=== PATIENT | male | born 1965 | race Hispanic/Latino ===

== ENCOUNTER 2017-01-02 11:11 | Emergency (ER) | payer SELFPAY ==
--- NOTE | 2017-01-02 14:17 | Emergency Department Report ---
ED Rash HPI - HPI Chief Complaint: Skin Rash Stated Complaint: RASH ALL OVER Time Seen by Provider: 01/02/17 14:01 Duration: 2 Days Location: Upper Extremities Suspected Cause: Plant Rash Symptoms: Yes Itching, No Facial Swelling, No Tongue/Oral Swelling, No Breathing Difficulties, No Choking Sensation, No Wheezing/Dyspnea, No Peeling, No Blistering, No Fever, No Lightheaded, No Malaise, No Myalgias Severity: moderate Other History: 51 y/o M presents with itching, redness, swelling, and diffuse rash, some linear and others in patches of his upper extremeties. Pt was out in the yard on Saturday pulling plants and then this started. Pt denies any resp distress, SOB, chest pain, chest tightness, choking sensation, or diff breathing at this time. Pt has been trying calamine lotion with no relief of the symptoms. Pt denies any numbness or tingling. No fever or chills. No known past medical hx. ED Review of Systems ROS: Stated complaint: RASH ALL OVER Other details as noted in HPI Constitutional: denies: chills, fever Eyes: other (no reported orbital swelling) ENT: other (no reported facial swelling, airway compromise, or lip swelling). denies: ear pain, throat pain Respiratory: denies: cough, shortness of breath, wheezing Cardiovascular: denies: chest pain, palpitations Skin: rash, pruritus, other Neurological: denies: headache, weakness, paresthesias Psychiatric: denies: anxiety, depression ED Past Medical Hx - Past Medical History Previous Medical History?: No - Social History Smoking Status: Current Every Day Smoker - Medications Home Medications: Home Medications Medication Instructions Recorded Confirmed Last Taken Type Hydroxyzine HCl 25 mg PO TID PRN #15 tablet 01/02/17 Unknown Rx Triamcinolone 0.1% [Kenalog 0.1% 1 applic TP TID PRN #1 tube 01/02/17 Unknown Rx CREAM] predniSONE [Deltasone] 20 mg PO QDAY #5 tab 01/02/17 Unknown Rx Rash Exam - Exam General: Vital signs noted. No distress. Alert and acting appropriately. HEENT: No Periorbital Edema, No Conjuctival Injection, No Chemosis, No Perioral Edema, No Tongue Edema, No Uvular Edema, No Compromised Airway (no facial swelling, airway is patent, no lips swelling noted), No Drooling Lungs: Yes Good Air Exchange, No Wheezes, No Ronchi, No Stridor, No Cough, No Labored Respirations, No Retractions, No Use of Accessory Muscles Heart: Yes Regular, No Murmur Front/Back of Body, Lg (Color): 1 - rash noted here 2 - rash noted here 3 - rash noted here 4 - rash noted here Skin: Yes Excoriations (there was some linear and some diffuse patches of what appears to be poision sarah, mild oozing noted, some redness), Yes Weeping, Yes Erythema, No Urticarial Rash, No Maculopapular Rash, No Morbilliform rash, No Bulla(e), No Tenderness, No Edema, No Encrustations Other: Positive: Abdomen Normal, Neurologic Normal, Musculoskeletal Normal ED Course Vital Signs 01/02/17 11:49 Temperature 98 F Pulse Rate 77 Respiratory 16 Rate Blood Pressure 126/83 Blood Pressure 126/83 [Right] O2 Sat by Pulse 96 Oximetry ED Medical Decision Making - Medical Decision Making Pt ED stay was uneventful. Pt was given Solu-medrol 125 mg here in the ED and was discharged home on prednisone oral for the next 5 days, hydroxyzine, and triamcinolone cream for the poison sarah rash. Pt did not have any resp distress, SOB, swelling of the mouth or lips. Pt was discharged in stable condition. Pt was given referrals to a specialist if needed for continued or worsening symptoms. Critical care attestation.: If time is entered above; I have spent that time in minutes in the direct care of this critically ill patient, excluding procedure time. ED Disposition Clinical Impression: Poison sarah, Dermatitis Disposition: DC-01 TO HOME OR SELFCARE Is pt being admited?: No Does the pt Need Aspirin: No Condition: Stable Instructions: Prednisone (By mouth), Poison Sarah (ED) Additional Instructions: Please take the oral prednisone starting tomorrow as you had the steriod shot today. Please avoid all NSAIDs while taking prednisone, I would advise no smoking at this time as well. Please take the anti-itch medicine at night as it may make you drowsy. Please follow-up with PCP within 3-5 days. Dermatology referral given to you today. Please return to the ER immediately with chest pain, SOB, or worsening symptoms. Prescriptions: Hydroxyzine HCl 25 mg PO TID PRN #15 tablet PRN Reason: itching predniSONE [Deltasone] 20 mg PO QDAY #5 tab Triamcinolone 0.1% [Kenalog 0.1% CREAM] 1 applic TP TID PRN #1 tube PRN Reason: itching Referrals: PRIMARY CARE, [Primary Care Provider] - 3-5 Days MANDO MUSTAFA MD [Staff Physician] - 3-[address] [facility] [place] [Outside] - 3-5 Days [facility] [Outside] - 3-5 Days Forms: Work/School Release Form(ED) Time of Disposition: 14:30
[2017-01-02 14:55] VITALS: BP 125/72
== END 2017-01-02 14:53 | disposition home or self-care (01) ==
LOC: ED 11:11
DX: L23.7 Allergic contact dermatitis due to plants, except food (principal); F17.200 Nicotine dependence, unspecified, uncomplicated; Z88.0 Allergy status to penicillin
CPT/HCPCS: 96372; 99282; J2930

== ENCOUNTER 2017-07-06 09:23 | Emergency (ER) | payer SELFPAY ==
[2017-07-06] MEDS ORDERED: DELTASONE PO ONE (11:32)
[2017-07-06] MEDS ORDERED: ROBITUSSIN PO ONE (11:32)
--- NOTE | 2017-07-06 11:54 | Emergency Department Report ---
Minor Respiratory - HPI Chief Complaint: Upper Respiratory Infection Stated Complaint: BODY ACHES Time Seen by Provider: 07/06/17 11:29 Minor Respiratory: Yes Able to Tolerate Fluids, Yes Cough, No Rhinorrhea, No Sore Throat, No Ear Pain, No Sick Contacts, No Hemoptysis, No Chest Pain, No Shortness of Breath, No Fever Other History: This is a 52-year-old male with no problems medical history who presents to ED complaining of cough and body aches for the past month. Patient states that symptoms is really worse this past week. Patient describes cough sometimes productive and intermittent throughout the day. She also states she has generalized body aches. He denies sick contacts, patient states that he does smoke tobacco a lot and drinks alcohol. ED Review of Systems ROS: Stated complaint: BODY ACHES Other details as noted in HPI Constitutional: denies: chills, fever Eyes: denies: eye pain, eye discharge, vision change ENT: denies: ear pain, throat pain Respiratory: cough. denies: shortness of breath, wheezing Cardiovascular: denies: chest pain, palpitations Endocrine: no symptoms reported Gastrointestinal: denies: abdominal pain, nausea, vomiting, diarrhea, constipation Genitourinary: denies: urgency, dysuria Musculoskeletal: denies: back pain, joint swelling, arthralgia Skin: denies: rash, lesions Neurological: denies: headache, weakness, paresthesias Psychiatric: denies: anxiety, depression Hematological/Lymphatic: denies: easy bleeding, easy bruising ED Past Medical Hx - Past Medical History Previous Medical History?: No - Surgical History Past Surgical History?: No - Social History Smoking Status: Current Every Day Smoker Substance Use Type: Alcohol - Medications Home Medications: Home Medications Medication Instructions Recorded Confirmed Last Taken Type Hydroxyzine HCl 25 mg PO TID PRN #15 tablet 01/02/17 Unknown Rx Triamcinolone 0.1% [Kenalog 0.1% 1 applic TP TID PRN #1 tube 01/02/17 Unknown Rx CREAM] predniSONE [Deltasone] 20 mg PO QDAY #5 tab 01/02/17 Unknown Rx ALBUTEROL Inhaler [ProAir HFA 2 puff IH QID PRN #1 pump 07/06/17 Unknown Rx Inhaler] Acetaminophen with Codeine 5 ml PO TID #80 ml 07/06/17 Unknown Rx [Acetaminop-Codeine 120-12 mg/5] Benzonatate [Tessalon Perles] 100 mg PO Q8HR #40 capsule 07/06/17 Unknown Rx Minor Respiratory Exam - Exam General: Vital signs noted. No distress. Alert and acting appropriately. HEENT: Yes Moist Mucous Membranes, No Pharyngeal Erythema, No Pharyngeal Exudates, No Rhinorrhea, No Conjuctival Injection, No Frontal Tenderness, No Maxillary Tenderness Ear: Neither TM Bulge, Neither TM Erythema, Neither EAC Pain, Neither EAC Discharge Neck: Yes Supple, No Adenopathy Lungs: Yes Good Air Exchange, No Wheezes, No Ronchi, No Stridor, No Cough, No Labored Respirations, No Retractions, No Use of Accessory Muscles, No Other Abnormal Lung Sounds Heart: Yes Regular, No Murmur Abdomen: Yes Normal Bowel Sounds, No Tenderness, No Peritoneal Signs Skin: No Rash, No Edema Neurologic: Alert and oriented, no deficits. Musculoskeletal: Unremarkable. ED Course Vital Signs 07/06/17 09:33 Temperature 97.7 F Pulse Rate 98 H Respiratory 18 Rate Blood Pressure 135/90 [Right] O2 Sat by Pulse 98 Oximetry ED Medical Decision Making - Radiology Data Radiology results: report reviewed, image reviewed Fluoro Time In Minutes: XRAY CHEST TWO VIEWS: 07/06/17 09:23:00 CLINICAL: Productive cough. COMPARISON: None FINDINGS: Normal heart and pulmonary vasculature. The lungs are hyperexpanded and hyperlucent. No airspace disease or pleural effusion.Mild degenerative changes in the spine. IMPRESSION: COPD.No pneumonia. Transcribed By: REF Dictated By: CORDELIA WHARTON MD Electronically Authenticated By: CORDELIA WHARTON MD Signed Date/Time: 07/06/17 1254 - Medical Decision Making 52-year-old male presents with bronchitis ED course: Patient received prednisone and Robitussin-AC Chest x-ray ordered. I discussed the patient to stop smoking for a while and that might help with cough. i discussed with pt that COPD with the patient which is worsened with smoking and smoking cessasion is strongly encouraged I discussed the patient that he would be sent Home on some cough medication. I discussed with him to follow-up wit primary care physician. Vital signs are stable patient is in no acute respiratory distress Critical care attestation.: If time is entered above; I have spent that time in minutes in the direct care of this critically ill patient, excluding procedure time. ED Disposition Clinical Impression: Bronchitis COPD (chronic obstructive pulmonary disease) Qualifiers: COPD type: chronic bronchitis Chronic bronchitis type: unspecified Qualified Code(s): J42 - Unspecified chronic bronchitis Disposition: TO HOME OR SELFCARE Is pt being admited?: No Does the pt Need Aspirin: No Condition: Stable Instructions: Acute Bronchitis (ED), Chronic Bronchitis (ED), Chronic Obstructive Pulmonary Disease (ED) Additional Instructions: Make sure to follow up with the primary care physician as discussed. Take all your medications as you've been prescribed. If you have any worsening symptoms or develop new symptoms please return to ED immediately. Prescriptions: Acetaminophen with Codeine [Acetaminop-Codeine 120-12 mg/5] 5 ml PO TID #80 ml ALBUTEROL Inhaler [ProAir HFA Inhaler] 2 puff IH QID PRN #1 pump PRN Reason: Shortness Of Breath Benzonatate [Tessalon Perles] 100 mg PO Q8HR #40 capsule Referrals: PRIMARY CARE, [Primary Care Provider] - 3-5 Days [facility] [Outside] - 3-5 Days [facility] [Outside] - 3-5 Days Forms: Work/School Release Form(ED)
--- NOTE | 2017-07-06 13:01 | XRay Report ---
XRAY CHEST TWO VIEWS: 07/06/17 09:23:00 CLINICAL: Productive cough. COMPARISON: None FINDINGS: Normal heart and pulmonary vasculature. The lungs are hyperexpanded and hyperlucent. No airspace disease or pleural effusion.Mild degenerative changes in the spine. IMPRESSION: COPD.No pneumonia.
[2017-07-06 13:09] VITALS: BP 116/70
== END 2017-07-06 13:21 | disposition home or self-care (01) ==
LOC: ED 09:23
DX: J42 Unspecified chronic bronchitis (principal); F17.200 Nicotine dependence, unspecified, uncomplicated
CPT/HCPCS: 71046; 99283; J7512